=== PATIENT | female | born 1970 | race Two or more races ===

== ENCOUNTER 2024-04-08 15:00 | Outpatient (AMB) | payer MEDICAID, SELFPAY ==
[2024-04-08 15:50] VITALS: BP 131/87; PULSE 85; RESP 18; TEMP 36.4; O2SAT 97; BMI 32.2
--- NOTE | 2024-04-08 15:50 | PD.GSCLVISIT ---
Vital Signs - [facility] 04/08/24 15:50 Height 1.57 m Height Method Stated Weight 79.861 kg Weight Measurement Method Standing Scale BMI 32.2 BP 131/87 H Blood Pressure Source Automatic Cuff Blood Pressure Location Left Upper Arm Position Sitting Respiration 18 Pulse 85 Pulse Source Monitor Temp 97.6 F Temp Source Temporal Artery Scan Pulse Oximetry (%) 97 Oxygen Delivery Method Room Air Med/Allergies Allergies & Medications Allergies No Known Allergies Allergy (Verified 04/08/24 15:54) Medication Reconciliation doxycycline hyclate 100 mg capsule 100 mg PO BID #28 caps 06/17/17 [Rx Confirmed 04/08/24] oxycodone-acetaminophen 5 mg-325 mg tablet (Percocet) 1 tab PO Q6H PRN pain #20 tabs 06/17/17 [Rx Confirmed 04/08/24] MA Intake Visit Data Collection New Patient or Established: New Patient (never been to [facility]) Seen by Clinical Staff ONLY (RN/MA): No Reason for Visit:: HEMORRHOIDS Pain Present Currently: No Care Services Manager Required: No PCP or OBGYN visit in last 3 months: Yes Hx Now: No Do You Feel Safe at Home: Yes Authorities Contacted: N/A Smoking Status Smoking Status: Never smoker Immunization / Flu Flu Vaccine in the Last 12 Months: No Flu Vaccine Exclusion Criteria: No Exclusion Criteria Past Medical History Surgical History SURGICAL: Positive Tubal Ligation Social History SMOKING STATUS: Smoking status: Never smoker HPI HPI Narrative 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 Pt reports for months she has had episodes of epigastric pain related to eating, which are sometimes severe. Pt reports that she underwent EGD/colonoscopy and was advised she had gastritis and diverticulosis but was negative for H pylori. She underwent HIDA scan showing EF of 3%. Pt also states she has long had hemorrhoids, at the moment they are well controlled but when she is under stress they tend to worsen PMH: Hemorrhoids, biliary dyskinesia PSHx: Appendectomy, lithotripsy for renal stones Meds: No antiplt or anticoagulation Allergies: NKDA Social hx: Nonsmoker ROS Review of Systems Systems Reviewed: All systems reviewed, normal except as documented Objective/Exam General General Appearance: alert, cooperative and well groomed Resp Respiratory exam: Absent respiratory distress Abdominal Abdominal exam: Present soft; Absent distention or tenderness Results HIDA reviewed Assessment & Plan Diagnosis / Problem List (1) Hemorrhoids: Assessment & Plan: Pt reports her symptoms are currently well controlled; I recommended she increase water intake for goal 2-3L per day (2) Biliary dyskinesia: Status: Acute Assessment & Plan: 54F with symptomatic biliary dyskinesia. I explained that up to 40% of patients with this diagnosis continue to have symptoms after cholecystectomy, however given her very low EF and description of symptoms am hopeful that it will improve her symptoms. I explained risks of surgery including need for conversion to open, bleeding, infection and injury to nearby structures requiring further procedures or biliary reconstruction which would need to be done at another hospital. Pt expressed understanding and agrees to proceed Office Procedures GNS Level of Care Nursing/Assessment Patient Status: Initial/New Patient Nursing Assessment/Reassesment: Medication Reconciliation, Update PMH in EMR and Vital Signs Coordination of Care: Complex Care and Chronic Disease 1-5, Education Complex Pt/Fam, Consent,records obtained, informed consent, Education Simp Pt/Fam, 1 Ins Authorization, Lab and Imaging orders, Results/Orders obtained and Staff clarify orders Special Needs: Language special needs New Patient Charge New Patient Point Assignment: [id number] New Patient Point Charge: STROKE COORDINATOR Level 4 ([id number]) Patient Portal Questionaires Social History Tobacco History Smoking Status: Never smoker Domestic Abuse History Do You Feel Safe at Home: Yes Review of Systems Report any current symptoms Only answer those that you have currently: Past Medical History Past Medical History Have you ever been diagnosed with any of the following:
== END 2024-04-08 16:30 | disposition home or self-care (01) ==
LOC: HODSRG 15:00
PROVIDERS: PCP Internal Medicine Gastroenterology; Referring Provider Internal Medicine Gastroenterology; Supervising Provider Surgery; Visit Provider Surgery
DX: K64.9 Unspecified hemorrhoids (principal); K82.8 Other specified diseases of gallbladder
CPT/HCPCS: 99204; G0463